=== PATIENT | female | born 1965 | race Caucasian/White ===

== ENCOUNTER → 2016-09-01 | Outpatient (CLI) | payer BC ==
[~2016-09-01] MED LIST: ALL180 PO; ATEN-173 PO; BIOT1CAP8 PO; BLACK COHOSH PO; CALCTAB5 PO; CLR10 PO; MELO15TA4 PO; METO25TA3 PO; MULT-506 PO
--- NOTE | 2016-09-01 14:00 | MAMMOGRAPHY REPORT ---
BILATERAL DIGITAL DIAGNOSTIC MAMMOGRAM TOMOSYNTHESIS WITH CAD AND TARGETED LEFT ULTRASOUND: 7 CLINICAL HISTORY: 51-year-old female presents for annual bilateral mammography and also follow-up of a 5 mm nodular asymmetry along the posterior nipple line on the CC view. TECHNIQUE: Bilateral breast tomosynthesis in addition to standard 2D mammography was performed. Curr ent study was also evaluated with a Computer Aided Detection (CAD) system. COMPARISON: Comparison is made to exams dated: 03/03/2016 ultrasound, 03/03/2016 mammogram, 08/30/2015 ultrasound, 08/30/2015 mammogram, 08/23/2014 mammogram, and 08/24/2015 mammogram - [facility]. BREAST COMPOSITION: There are scattered areas of fibroglandular density in both breasts. FINDINGS: The parenchymal pattern of the right breast is similar compared to prior exams. No new espinoza spicious mass, architectural distortion or suspicious microcalcifications are seen in the right rashmi [address]. There are stable punctate benign-appearing microcalcifications in the lateral right breast. A 5 mm partially circumscribed mass is again seen in the middle one third of the left breast, along the posterior nipple line on the CC view. There is a second possible lobulated 7 mm mass in the upp er outer middle one third of the left breast, 9 cm distal to the nipple. A faint 4 mm asymmetry in the medial posterior left breast on the CC view is increasingly conspicuous compared to prior exams. Further evaluation with ultrasound was performed throughout the left breast. Real-time high-resolution ultrasound was performed throughout the left breast including the retroare olar breast. In the 11:30 periareolar left breast, previously labeled as 12:00 axis, there is a rou nded hypoechoic solid versus cystic mass measuring 3.2 x 2.7 x 2.8 mm. When comparing to the prior ultrasound this measured 3.3 x 3.1 x 3.5 mm on the March 03 exam, and 3.7 x 3.2 x 3.0 mm on the August 29 exam. This most likely represents a benign mass such as a, gated cyst or fibroadenoma give n the stability. Additional sonographic evaluation was performed in the medial and lateral left martín ast. However, the 7 mm lobulated mass is not definitely identified, nor is any abnormality in the m edial breast to correlate with the 4 mm asymmetry. IMPRESSION: ACR BI-RADS CATEGORY 0: INCOMPLETE EVALUATION: NEED ADDITIONAL IMAGING EVALUATION, TAR GETED ULTRASOUND ACR BI-RADS CATEGORY 0: INCOMPLETE EVALUATION: NEED ADDITIONAL IMAGING EVALUATION 1. There is a stable benign-appearing solid versus cystic mass in the 11:30 to 12:00 periareolar le ft breast, thought to correlate with a 5 mm mammographic mass, which has also been stable mammograph ically for 1 year. 2. However, there is a lobulated 7 mm mass in the upper outer middle one third of the left breast, and a vague 4 mm asymmetry in the medial left breast without sonographic correlate. Given the famil y history of breast cancer, the patient's mother, further evaluation with a bilateral breast MRI is recommended to exclude the possibility of a suspicious enhancing mass in those locations. 3. Stable mammographic appearance of the right breast, without mammographic evidence of malignancy. Recommend follow-up mammography in 1 year. These results and recommendations were discussed with the patient at the time of the exam. She tent atively scheduled the breast MRI prior to leaving our department. Approximately 10% of breast cancers are not detected with mammography. A negative mammographic repor t should not delay biopsy if a clinically suggestive mass is present. Nayana Roberts M.D. ay/:09/01/2016 10:22:24 Bullet Slug Casting Machine Operator: Dayana CHAWLA)([place]), [facility] letter sent: Addl Imaging 0 BI-RADS Code: ACR BI-RADS Category 0: Incomplete Evaluation: Need Additional Imaging Evaluation Ul trasound BI-RADS: ACR BI-RADS Category 0: Incomplete Evaluation: Need Additional Imaging Evaluation
== END | disposition home or self-care (01) ==
LOC: C.MAMM 08:15
PROVIDERS: ATTEND Obstetrics & Gynecology
DX: N63 Unspecified lump in breast (principal); N64.9 Disorder of breast, unspecified

== ENCOUNTER → 2016-09-23 | Outpatient (CLI) | payer BC ==
[~2016-09-23] MED LIST changes: +GADAVIST IV PRN
--- NOTE | 2016-09-25 07:55 | MAMMOGRAPHY REPORT ---
BREAST MRI OF BOTH BREASTS : 09/23/2016 CLINICAL HISTORY: 51-year-old woman with a strong history of breast cancer = mother, presents for as sessment in the left breast. There is a 7 mm lobulated mass in the upper outer quadrant of the left breast and vague 4 mm nodular asymmetry in the medial left breast for which no sonographic correlat es are identified. Breast MRI is obtained to exclude any suspicious enhancing masses in the areas. COMPARISON: Comparison is made to exams dated: 09/01/2016 ultrasound, 09/01/2016 mammogram, 03/03/2016 ultrasound, 08/30/2015 ultrasound, 08/30/2015 mammogram, and 08/24/2015 mammogram - [facility]. TECHNIQUE: Using a 1.5 Kristina magnet and dedicated breast coil, multisequence axial images were obtai belinda through the breasts. After uneventful IV administration of 10.5 mL of Gadavist, dynamic multiph ase contrast-enhanced axial images, and sagittal postcontrast were obtained. Temporal subtraction a xial images and 3-D MIP images are provided. Everything was then reviewed on a 3-D workstation, AEG IS. FINDINGS: Right breast: There is no significant background parenchymal enhancement. No suspicious enhancing m ass, non-mass enhancement, focal area of architectural distortion or suspicious kinetics are seen wi thin the right breast. There is no focal skin thickening or nipple retraction. No suspicious right axillary lymphadenopathy. Left breast: There is no significant background parenchymal enhancement. A 7.9 mm conspicuous nodul ar area of fibroglandular tissue is identified in the 2:00 to 3:00 posterior left breast (sagittal i mage 25/136 and axial image 70/120) there is no associated enhancement or suspicious kinetics. In r etrospect, this nodular asymmetry appears very similar to 08/09/2012 mammogram, therefore likely jaime ign. Given the lack of enhancement this is not considered suspicious and no further close follow-up is needed. However, there is a round, circumscribed enhancing mass in the 10:00 middle to anterior left breast with associated persistent kinetics (axial image 71/120 and saggital images 31/136), me asuring 4.5 x 3.8 mm. This is isointense on the corresponding T2-weighted sequence. No associated architectural distortion. This likely correlates with the 4 mm nodular asymmetry seen mammographica lly. Although this could represent a benign mass is a fibroadenoma, second look ultrasound with pos sible ultrasound-guided core needle biopsy is recommended. No other suspicious enhancing mass, non- mass enhancement, focal area of architectural distortion or suspicious kinetics is seen in the left breast. There is no focal skin thickening or nipple retraction. No suspicious left axillary lympha denopathy. IMPRESSION: ACR BI-RADS CATEGORY 0: INCOMPLETE EVALUATION: NEED ADDITIONAL IMAGING EVALUATION 1. A 4.5 x 3.8 mm round enhancing mass is identified in the 10:00 left breast, thought to correlate with nodular asymmetry seen mammographically. Targeted second look ultrasound with possible ultras ound-guided core needle biopsy is recommended. 2. The 7 mm nodular asymmetry in the lateral left breast is identified on MRI but demonstrates no a ssociated enhancement. This is considered benign and also in retrospect has likely been stable mamm ographically dating back to at least 2012. No further close follow-up is needed at this time. 3. No MRI evidence of malignancy within the right breast. The patient will be called to schedule an appointment. Nayana Roberts M.D. ay/:09/24/2016 22:05:49 Hydrographer: table games floor supervisor, [facility] letter sent: Addl Imaging 0 BI-RADS Code: ACR BI-RADS Category 0: Incomplete Evaluation: Need Additional Imaging Evaluation
== END | disposition home or self-care (01) ==
LOC: C.MRI 06:23
PROVIDERS: ATTEND Obstetrics & Gynecology
DX: R92.8 Other abnormal and inconclusive findings on diagnostic imaging of breast (principal); N63 Unspecified lump in breast; N64.89 Other specified disorders of breast; Z80.3 Family history of malignant neoplasm of breast

== ENCOUNTER → 2016-10-03 | Outpatient (CLI) | payer BC ==
[~2016-10-03] MED LIST changes: -GADAVIST IV PRN
--- NOTE | 2016-10-03 12:36 | MAMMOGRAPHY REPORT ---
ULTRASOUND OF LEFT BREAST: 10/03/2016 CLINICAL HISTORY: Second look ultrasound for a 5 mm round enhancing mass seen within the left 10:00 breast on recent breast MRI. COMPARISON: Comparison is made to exams dated: 09/01/2016 mammogram, 03/03/2016 mammogram, 08/30/2015 mammogram, 08/24/2015 mammogram, and 08/23/2014 mammogram - [facility]. TECHNIQUE: Real-time targeted ultrasound of the left breast was performed. FINDINGS: Real-time, high-resolution targeted ultrasound was performed of the area of the enhancing mass seen on the breast MRI, in the left breast at approximately 10:00. No suspicious masses or other suspici ous sonographic abnormalities are noted in the left 10:00 breast. In the left 11 to 11:30 breast, 2 cm from the nipple, again noted is a round circumscribed hypoechoic mass which measures 4 x 3 mm, w hich is stable dating back to the 08/30/2015 exam where the mass measured 4 x 3 x 3 mm. This does no t clearly correlate with the enhancing mass on MRI due to the far posterior location, whereas the ma ss on MRI was at a middle depth. The enhancing mass on MRI corresponds with a mammographic mass whi ch has been stable now dating back to August 2015. Given one year of stability and given the benign morphology on MRI including round shape and circumscribed margins as well as persistent kinetic monika ernestina, the mass is probably benign and likely represents a fibroadenoma. Recommend another short inte rval follow-up mammogram and possible ultrasound of the left breast in 6 months. IMPRESSION: ACR-BI-RADS CATEGORY 3: PROBABLY BENIGN - FOLLOW-UP RECOMMENDED Hypoechoic 4 mm mass in the left 11:30 breast on ultrasound is stable dating back to the August 2015 exam. This may correlate with the enhancing mass seen on MRI although is in a more posterior locati on than expected for the MRI mass. The enhancing mass on MRI has been stable mammographically datin g back to the August 2015 exam, and has benign features on the MRI. Given one year of stability and given benign features on MRI, the mass is probably benign. Recommend short interval follow-up diagn ostic tomosynthesis mammograms and possible ultrasound of the left breast in 6 months to confirm lidia chacha stability. The patient was verbally notified of the results. Sheila Hernandez M.D. ah/:10/03/2016 08:53:47 Director Workers Compensation: Sheila Hernandez MD, [facility] letter sent: Follow Up Recommended 3 BI-RADS Code: ACR-BI-RADS Category 3: Probably Benign
== END | disposition home or self-care (01) ==
LOC: C.MAMM 08:03
PROVIDERS: ATTEND Obstetrics & Gynecology
DX: N63 Unspecified lump in breast (principal)

== ENCOUNTER → 2017-04-06 | Outpatient (CLI) | payer BC ==
[~2017-04-06] MED LIST changes: -ALL180 PO; -ATEN-173 PO; -CALCTAB5 PO; -MULT-506 PO
--- NOTE | 2017-04-06 13:34 | MAMMOGRAPHY REPORT ---
UNILATERAL LEFT DIGITAL DIAGNOSTIC MAMMOGRAM TOMOSYNTHESIS WITH CAD AND TARGETED LEFT ULTRASOUND: CLINICAL HISTORY: 51-year-old woman presents for follow-up in the left breast for a 4 mm benign-appea ring mass in the 11:30 axis. TECHNIQUE: Left breast CC and MLO 2-D and tomosynthesis images were obtained. Current study was als o evaluated with a Computer Aided Detection (CAD) system. COMPARISON: Comparison is made to exams dated: 10/03/2016 ultrasound, 09/23/2016 breast MRI, 09/01/2016 ultrasound, 09/01/2016 mammogram, 03/03/2016 mammogram, and 08/24/2015 mammogram - [facility]. BREAST COMPOSITION: There are scattered areas of fibroglandular density in the left breast. FINDINGS: A lobulated mass in the superior posterior left breast on the MLO view has decreased in siz e, confirming benignity (tomosynthesis slice 28/84). There is a low density 4 mm partially circumscr ibed mass in the 11:30 to 12:00 left breast, 4.4 cm distal to the nipple on the CC view that appears similar in size dating back to at least 08/24/2015 and is most likely benign. No other new suspiciou s mass, focal area of architectural distortion, asymmetry or suspicious calcifications are seen in th e left breast. There are scattered benign-appearing punctate microcalcifications diffusely throughou t the left breast. Targeted ultrasound was performed in the left breast 11:00 to 12:00 axes. In the 11:30 axis, 2 cm fr om the nipple, a small parallel hypoechoic circumscribed benign appearing mass is again seen measurin g 4.2 x 2.6 x 4.6 mm. This does not appear significantly changed comparing to prior ultrasounds dati ng back to 03/03/2016, and possibly 08/30/2015. No new suspicious solid mass is identified. IMPRESSION: ACR-BI-RADS CATEGORY 3: PROBABLY BENIGN, TARGETED ULTRASOUND ACR-BI-RADS CATEGORY 3: PRO BABLY BENIGN There is a benign appearing circumscribed 4 mm low-density mammographic mass in the middle one third of the left breast, along the posterior nipple line on the CC view (tomosynthesis slice 38), that has been stable mammographically dating back to August 2015, and likely also stable sonographically datin g back to that time. Another six-month follow-up left diagnostic tomosynthesis mammogram and repeat ultrasound is recommended to ensure at least 2 years of stability to confirm benignity. Annual right mammography will also be due at that time. These results and recommendations were discussed with the patient at the time of the exam. Approximately 10% of breast cancers are not detected with mammography. A negative mammographic report should not delay biopsy if a clinically suggestive mass is present. Nayana Roberts M.D. ay/:04/06/2017 10:23:44 Boring Machine Operator Horizontal: Kerry RUELAS(Missy)(M), [facility] letter sent: Follow Up Recommended 3 BI-RADS Code: ACR-BI-RADS Category 3: Probably Benign Ultrasound BI-RADS: ACR-BI-RADS Category 3: Pr obably Benign
== END | disposition home or self-care (01) ==
LOC: C.MAMM 07:52
PROVIDERS: ATTEND Obstetrics & Gynecology
DX: N63.20 Unspecified lump in the left breast, unspecified quadrant (principal)

== ENCOUNTER → 2017-10-14 | Outpatient (CLI) | payer BC ==
[~2017-10-14] MED LIST changes: +MELO-84 PO; -MELO15TA4 PO
--- NOTE | 2017-10-14 15:31 | MAMMOGRAPHY REPORT ---
BILATERAL DIGITAL DIAGNOSTIC MAMMOGRAM TOMOSYNTHESIS WITH CAD AND TARGETED LEFT ULTRASOUND: 10/14/2017 CLINICAL HISTORY: Close follow-up of a benign-appearing low density circumscribed 4 mm mass in the le ft breast along the posterior nipple line on the CC view. Also time of annual bilateral screening ma mmography. TECHNIQUE: Bilateral breast tomosynthesis in addition to standard 2D mammography was performed. Curre nt study was also evaluated with a Computer Aided Detection (CAD) system. COMPARISON: Comparison is made to exams dated: 04/06/2017 mammogram, 04/06/2017 ultrasound, 7 ultrasound, 09/23/2016 breast MRI, 09/01/2016 mammogram, and 03/03/2016 ultrasound - [facility]. BREAST COMPOSITION: There are scattered areas of fibroglandular density in both breasts. FINDINGS: There is a persistent 4 mm circumscribed low-density mass in the middle one third of the le ft breast along the posterior nipple line on the CC view that is stable in size and visual appearance dating back to at least 08/24/2015. An asymmetry in the lateral, middle one third of the left breast o n the CC view is less prominent and most likely represented normal overlapping tissue. There are a f ew scattered benign punctate microcalcifications, stable in each breast. No new suspicious mass, as ymmetry, architectural distortion or cluster of microcalcifications is seen. Targeted ultrasound was performed in the 11:30 left breast, in the area of benign-appearing hypoechoi c circumscribed mass identified on prior ultrasound. In the 11:30 axis, 2 cm from the nipple, there is an oval parallel circumscribed hypoechoic benign-appearing mass measuring 4.7 x 2.6 x 4.6 mm. Thi s is unchanged comparing to the prior ultrasound dated October 03, 2016. IMPRESSION: ACR BI-RADS CATEGORY 2: BENIGN, TARGETED ULTRASOUND ACR BI-RADS CATEGORY 2: BENIGN Stable mammographic appearance of the breasts, including stable size of a benign-appearing circumscri bed 4 mm mass in the middle one third of the left breast along the posterior nipple line on the CC vi ew, that is similar in size and visual appearance dating back to at least 08/24/2015 and with 2 years o f stability is considered benign. A possible sonographic correlate in the 1130 left breast, 2 cm fro m the nipple on targeted ultrasound is also stable. Therefore, would recommend return to annual scre ening mammography schedule, including tomosynthesis mammography in 1 year. These results and recommendations were discussed with the patient at the time of the exam. Approximately 10% of breast cancers are not detected with mammography. A negative mammographic report should not delay biopsy if a clinically suggestive mass is present. Nayana Roberts M.D. ay/:10/14/2017 08:42:04 Deployment Specialist: Meenakshi RUELAS(R)(M), [facility] letter sent: Normal 1/2 BI-RADS Code: ACR BI-RADS Category 2: Benign Ultrasound BI-RADS: ACR BI-RADS Category 2: Benign
== END | disposition home or self-care (01) ==
LOC: C.MAMM 07:55
PROVIDERS: ATTEND Obstetrics & Gynecology
DX: N63.20 Unspecified lump in the left breast, unspecified quadrant (principal)

== ENCOUNTER → 2017-10-28 | Outpatient (CLI) | payer BC | END | disposition home or self-care (01) | LOC: C.PAPS 11:42 | PROVIDERS: ATTEND Obstetrics & Gynecology | DX: Z01.419 Encounter for gynecological examination (general) (routine) without abnormal findings (principal) ==

== ENCOUNTER 2023-12-16 05:00 | Observation (INO) ==
--- NOTE | 2023-11-05 12:19 | PAT Medication Instructions ---
Medication Instructions Date of Service November 05, 2023 Home Medications calcium carbonate-vitamin D3 [Calcium 600 with Vitamin D3] 1 tab PO QAM loratadine 10 mg tablet (Claritin) 10 mg PO DAILY PRN Allergy Symptoms magnesium oxide 400 mg PO QAM vitamin A 2,400 mcg capsule 2,400 mcg PO QAM biotin 10,000 mcg capsule 10,000 mcg PO QAM desonide 0.05 % topical gel 1 applic topical Q2D estradiol 0.01% (0.1 mg/gram) vaginal cream 1 appful vaginal UD metoprolol succinate 25 mg tablet,extended release 24 hr 12.5 mg PO QAM [id number] 5 mg-zeaxanth 1 mg-bilberry 7.5 mg-herbal capsule (Macular Health Formula) 1 cap PO QAM ASK your prescriber and surgeon estradiol 0.01% (0.1 mg/gram) vaginal cream 1 appful vaginal UD STOP taking 2 weeks before surgery vitamin A 2,400 mcg capsule 2,400 mcg PO QAM biotin 10,000 mcg capsule 10,000 mcg PO QAM [id number] 5 mg-zeaxanth 1 mg-bilberry 7.5 mg-herbal capsule (Macular Health Formula) 1 cap PO QAM STOP taking 24 hours before surgery desonide 0.05 % topical gel 1 applic topical Q2D DO NOT take the morning of surgery calcium carbonate-vitamin D3 [Calcium 600 with Vitamin D3] 1 tab PO QAM loratadine 10 mg tablet (Claritin) 10 mg PO DAILY PRN Allergy Symptoms magnesium oxide 400 mg PO QAM Take morning of surgery With a small sip of water, OTHERWISE NOTHING TO EAT OR DRINK AFTER MIDNIGHT: metoprolol succinate 25 mg tablet,extended release 24 hr 12.5 mg PO QAM Take evening before surgery loratadine 10 mg tablet (Claritin) 10 mg PO DAILY PRN Allergy Symptoms (if needed) Other Notes If you have any questions please call us at [phone] or [phone] or [phone] or [phone]
--- NOTE | 2023-11-18 14:34 | Anesthesiology Consultation ---
Date of Service November 18, 2023 Assessment & Plan (1) Encounter for pre-operative examination: Plan - PCP pre-operative evaluation Dr. Gregory Sullivan. PAT testing to be faxed to PCP. - cardiology pre-operative evaluation 11/04/23 [place]: "...history of paroxysmal SVT. She presents for preoperative cardiovascular evaluation prior to left knee replacement with Dr. Powell...currently stable and asymptomatic from a cardiovascular standpoint with no anginal symptoms occurring at >4 METS of activity. She has no evidence of CHF or significant valvular abnormality. BP is well controlled. ECG today shows normal sinus rhythm with no concerning findings. Given this information, patient is at an acceptable risk to proceed with surgery without any additional cardiovascular testing or intervention..." Chart Review Chart Review: Pending: Refer to Additional Notes / Consult section and Patient seen in Pre Admission Testing Teaching & Discussion Pre-Anesthesia Teaching/Discussion Notes: Instructed NPO after midnight before surgery, except medications with 15 cc of water. Medication instructions provided according to the PAT guidelines. History Surgery Operation Date: 12/16/23 09:05 Proposed Procedures p Left Total Knee Arthroplasty - Reggie Powell MD Height/Weight Height: 5 ft 9 in Weight: 106.2 kg Allergies Allergy/AdvReac Type Severity Reaction Status Date / Time pollen extracts Allergy Mild Verified 11/04/23 11:38 aspirin Allergy Unknown UPSET Verified 11/04/23 11:38 STOMACH latex Allergy Unknown RASH Verified 11/04/23 11:38 meperidine Allergy Unknown "KNOCKED Verified 11/04/23 11:38 OUT FOR HALF A DAY" METAL Allergy Unknown RASH WITH Uncoded 11/18/23 14:35 EARRINGS, CAN TOLERATE RINGS Medications Home Medications Medication Instructions Recorded Confirmed Last Taken calcium carbonate-vitamin D3 1 tab PO QAM 12/05/19 11/04/23 Unknown [Calcium 600 with Vitamin D3] loratadine 10 mg tablet (Claritin) 10 mg PO DAILY PRN Allergy Symptoms 12/26/20 11/04/23 Unknown magnesium oxide 400 mg PO QAM 02/25/22 11/04/23 Unknown vitamin A 2,400 mcg capsule 2,400 mcg PO QAM 02/25/22 11/04/23 Unknown biotin 10,000 mcg capsule 10,000 mcg PO QAM 10/30/23 11/04/23 Unknown desonide 0.05 % topical gel 1 applic topical Q2D 10/30/23 11/04/23 Unknown estradiol 0.01% (0.1 mg/gram) 1 appful vaginal UD 10/30/23 11/04/23 Unknown vaginal cream metoprolol succinate 25 mg 12.5 mg PO QAM 10/30/23 11/04/23 Unknown tablet,extended release 24 hr [id number] 5 mg-zeaxanth 1 cap PO QAM 10/30/23 11/04/23 Unknown 1 mg-bilberry 7.5 mg-herbal capsule ([email or web address] Health Formula) Past Medical History Medical History (Updated 11/18/23 @ 15:15 by Jacqueline Segura PA-C) Deviated septum no sx. Elevated blood pressure reading without diagnosis of hypertension Lichen sclerosus Neck pain chronic, denies change or worsening Palpitations chronic, infrequent Paroxysmal supraventricular tachycardia dx ~2008 or 2009, currently on metoprolol; f/u dr. [place], [place], yearly Slow to wake up after anesthesia "think it was from the demerol" Urge and stress incontinence Patient denies h/o stroke, seizures, heart attack, heart failure, DM, blood clots/DVTs or blood transfusions. Exercise / Class Metabolic Activity II 4-5 Yardwork/Stairs/Walk up hill (shortness of breath with one flight of stairs ongoing x several years; denies change or worsening; denies chest discomfort) Past Family History Family History Sister Atrial fibrillation Mother Atrial fibrillation Breast cancer Father Prostate cancer Other Macular degeneration Denies family history of Ovarian cancer Colorectal cancer Past Surgical History Surgical History H/O colonoscopy History of dilatation and curettage 2008 Hx of tonsillectomy [place] teeth extracted Past Anesthesia History Other (see above; uncle combative) History of PONV No Hx of PONV and Hx of Motion Sickness Social History Smoking Status: Never smoker Do You Dip or Chew Tobacco: No Hx Alcohol Use: Yes alcohol intake frequency: holidays/special occasions only Hx Substance Use: No substance use type: does not use Review of Systems Snoring, denies witnessed apneas. Patient denies chest pain, reflux, fever, chills, cough, or wheezing. Physical Exam Vital Signs Vitals BP 122/84 P 60 TEMP 98 SP02 97% on RA RESP 18 Physical Patient resting comfortably in chair in no acute distress, alert and oriented, responding appropriately throughout visit Full cervical extension range of motion without pain TMD 3.5 finger breadths Mallampati Score 2 Dentition: one cap; denies chipped or loose teeth, crowns, implants or bridges Lungs: normal respiratory effort. Good air movement, clear throughout to auscultation, no adventitious breath sounds Cardiac: regular rate and rhythm, no murmurs noted Carotid arteries: negative bruit bilat Lab Results Anesthesia Preop Results Results Anesthesia Widget: WBC 6.96 K/ul (4.8-10.8) 11/18/23 Hgb 14.3 g/dl (12.0-16.0) 11/18/23 Hct 44.1 % (37.0-47.0) 11/18/23 Plt 223 K/uL (130-400) 11/18/23 Na 138 mmol/L (136-145) 11/18/23 K 4.5 mmol/L (3.5-5.1) 11/18/23 Cl 102 mmol/L (98-107) 11/18/23 CO2 31 mmol/L (21-32) 11/18/23 BUN 15 mg/dl (6-23) 11/18/23 Creat 0.85 mg/dl (0.6-1.2) 11/18/23 Glucose Level 99 mg/dl (70-99(Fasting)) 11/18/23 PT 10.0 Seconds (9.0-12.0) 11/18/23 PTT 28 Seconds (21-31) 11/18/23 INR 0.9 (0.9-1.1) 11/18/23 Urine Color Yellow 11/18/23 Urine Appearance Clear (Clear) 11/18/23 Urine pH >= 9.0 (4.5-7.5) H 11/18/23 Urine Specific [place] 1.011 (1.000-1.030) 11/18/23 Urine Protein Negative (Negative) 11/18/23 Urine Glucose (UA) Negative (Negative) 11/18/23 Urine Ketones Negative (Negative) 11/18/23 Urine Blood Negative (Negative) 11/18/23 Urine Nitrite Negative (Negative) 11/18/23 Urine Bilirubin Negative (Negative) 11/18/23 Urine Urobilinogen Negative (Negative) 11/18/23 Urine Leukocyte Esterase 1+ (Negative) H 11/18/23 Urine WBC (Auto) 0-5 /hpf (0-5) 11/18/23 Urine RBC (Auto) 0-2 /hpf (0-2) 11/18/23 Urine Hyaline Casts (Auto) 0-2 /lpf (0-2) 11/18/23 Urine Epithelial Cells (Auto) 0-2 /hpf (0-2) 11/18/23 Urine Bacteria (Auto) None Seen (None Seen) 11/18/23 Blood Type O Positive 11/18/23 Antibody Screen NEGATIVE 11/18/23 Testing Electrocardiogram Date: 11/04/23 NSR, rate 72 bpm Chest X-Ray Date: 11/18/23 No active disease in the chest.
--- NOTE | 2023-12-16 05:26 | History & Physical Bridge Note ---
Date of Service December 16, 2023 History & Physical Bridge Note I have examined the patient, reviewed the History & Physical and in the interval since the performance of the History & Physical I have noted the following changes of clinical significance:consent and site verified. no changes noted
[2023-12-16] MEDS: LR 60ML/HR IV SCH (05:53)
[2023-12-16] MEDS: LR 500ML BOLUS, THEN 15ML/HR IV SCH (06:05)
[2023-12-16] MEDS ORDERED: ROPIVACAINE 0.5% 5 MG/ML 30 ML VIAL ONE (06:16)
[2023-12-16] MEDS ORDERED: MIDAZOLAM HCL 1 MG/ML 2ML VIAL ONE ×2 (06:28→06:33)
[2023-12-16] MEDS ORDERED: fentaNYL citrate PF 100 MCG/2 ML VIAL ONE (06:29)
[2023-12-16] MEDS ORDERED: ONDANSETRON INJ 2 MG/ML 2 ML VIAL IV PRN ×2 (06:33→09:59)
[2023-12-16] MEDS ORDERED: ePHEDrine sulfate 50 MG/ML AMP IV PRN (06:33)
[2023-12-16] MEDS ORDERED: fentaNYL citrate PF 100 MCG/2 ML VIAL IV PRN (06:33)
[2023-12-16] MEDS ORDERED: ATROPINE SULFATE 0.1 MG/ML 10ML SYR IV PRN (06:33)
[2023-12-16] MEDS ORDERED: DROPERIDOL 5 MG/2 ML VIAL IV PRN (06:33)
[2023-12-16] MEDS ORDERED: PROPOFOL IV EMULSION 10 MG/ML 20 ML VIAL IV ONE ×4 (06:35→08:25)
[2023-12-16] MEDS: TRANEXAMIC ACID 1,000 MG **IV Pre-op IV SCH (06:39)
[2023-12-16] MEDS: ceFAZolin 2000MG 2,000 MG/15 ML SYR IV SCH ×2 (07:00→14:51)
[2023-12-16] MEDS: ORTHO JOINT ANESTHETIC ONE (07:28)
[2023-12-16] MEDS: ROPIV 0.5% 246mg, Ketorolac 30mg, EPINEPHrine 0.5mg in NSS INFIL SCH (07:28)
[2023-12-16] MEDS ORDERED: KETOROLAC 30 MG/ML VIAL ONE (07:39)
[2023-12-16] MEDS ORDERED: ONDANSETRON INJ 2 MG/ML 2 ML VIAL ONE (07:39)
[2023-12-16] MEDS ORDERED: ePHEDrine sulfate 50 MG/5 ML SYR ONE (07:43)
[2023-12-16] MEDS ORDERED: GLYCOPYRROLATE 0.2 MG/ML VIAL ONE (07:50)
[2023-12-16] MEDS ORDERED: KETAMINE HCL 10MG/ML SYR ONE (07:54)
[2023-12-16] MEDS: TRANEXAMIC ACID 1,000 MG **IV Intra-op IV SCH (08:18)
--- NOTE | 2023-12-16 08:47 | Post Operative Brief Note ---
Immediate Post Op Note Date of Surgery December 16, 2023 Pre & Post Diagnosis Operation Date: 12/16/23 07:00 Pre-Op Diagnosis: Left Knee Osteoarthritis Post-Op Diagnosis: Left Knee Osteoarthritis I identified the patient and participated in the time-out.: Yes Procedure Operation Date: 12/16/23 07:00 Actual Procedures p Left Total Knee Arthroplasty(Left) - Reggie Powell MD Surgeon Reggie Powell MD Loan Servicing Representative POLI/Pastora Estimated Blood Loss 25 Findings Consistent with Post-Op Diagnosis Grade 4 patellofemoral disease entire compartment grade 4 lesion times there is area medial femoral condyle and half dime sized area lateral femoral condyle marginal osteophytes entire femur advanced laterally. Fluids See anesthesia report Complications None
--- NOTE | 2023-12-16 08:52 | Operative Report ---
Post Operative Report Pre & Post Diagnosis Operation Date: 12/16/23 07:00 Pre-Op Diagnosis: Left Knee Osteoarthritis Post-Op Diagnosis: Left Knee Osteoarthritis I identified the patient and participated in the time-out.: Yes Procedure Operation Date: 12/16/23 07:00 Actual Procedures p Left Total Knee Arthroplasty(Left) - Reggie Powell MD Surgeon Reggie Powell MD Cable Ferryboat Operator POLI/Pastora Estimated Blood Loss 25 Findings Consistent with Post-Op Diagnosis Severe patellofemoral disease entire compartment dime size area medial femoral condyle SIZED area lateral femoral condyle marginal osteophytes severe particularly laterally. Fluids See anesthesia Specimens Bone pathology Drains None Complications None Indications Failed conservative management including multiple injections advanced disease by x-ray in the patellofemoral joint Description of Procedure After the patient was appropriate notified site provide consent verified antibiotics confirmed to be given the left lower extremity was prepped and draped in his routine fashion. Leg was exsanguinated with a rubber Esmarch bandage and the tourniquet inflated to 275 mmHg for total of 68 minutes. Midline exposure was utilized parapatellar throughout any performed synovectomy completed. Osteophytes removed along the margin of the femur. Distal femur then entered cruciates resected tibia subluxated menisci resected. Distal femur then resected approximately 9 to 10 mm. Extramedullary tibial alignment guide then applied and 4 mm cut made off the tibia. Extension gap was excellent. Tibia was sized to a size 4 femur sized to a size 5 appropriate rotation marked. Cutting block applied anterior posterior condylar and chamfer cuts made. Flexion gap checked and was excellent box cuts then made. Size 5 fit well. Tibia is then broached and reamed to a size 4. Trial spacer was then fit and the 11 mm spacer was excellent. This allowed excellent tracking of the patella. Along good midrange stability and good extension flexion stability throughout full range of motion. Patella was then resected and fit for 32 appropriate seating only leaving about 13 to 14 mm of patella. Patella button tracked well. Ortho mix was injected all about the knee all trial limits were removed the knee soaked in Betadine for 2 minutes then irrigated and then the permanent cemented into position tibia femur patella in that order at 12 minutes tourniquet deflated at 14 minutes knee flexed no cement removal was required wound was irrigated. Permanent liner was then seated. The knee was reduced. Everything was stable and tracked well. The wound was then closed with #2 Vicryl 2-0 Vicryl and standstill clips appropriate dressing applied the patient transferred recovery in satisfactory condition he tolerated the procedure well. Summary of implants journey 2 [employer] implant femur size 5 tibia size 4 insert 11 mm thick size 4 patella size 32 2 bags of Palacos G cement. (Femur 56 FT tibia 46 FT insert 3/411 mm 6 FT patella 32 round). I attest to the content of the Intraoperative Record and any orders documented therein. Any exceptions are noted below.
--- NOTE | 2023-12-16 08:53 | Orthopedic Progress Note ---
Date of Service December 16, 2023 Orthopedic Progress Note Patient tolerated left total knee replacement well. Denies chest pain shortness of breath fever chills nausea vomiting headache. Vital signs are stable she is afebrile. Wound dressing clean dry and intact. Neurovascular check limited by spinal x- ray pending. Family contacted.
--- NOTE | 2023-12-16 08:54 | Discharge Summary ---
Date of Service December 17, 2023 Admission HPI Per Admitting Provider Left knee pain admitted for left total knee replacement. Failed conservative management for an extended period of time. Principal Diagnosis Osteoarthritis left knee advanced patellofemoral joint Discharge Data Allergies Allergy/AdvReac Type Severity Reaction Status Date / Time pollen extracts Allergy Mild Verified 12/16/23 05:51 aspirin Allergy Unknown UPSET Verified 12/16/23 05:51 STOMACH latex Allergy Unknown RASH Verified 12/16/23 05:51 meperidine Allergy Unknown "KNOCKED Verified 12/16/23 05:51 OUT FOR HALF A DAY" METAL Allergy Unknown RASH WITH Uncoded 12/16/23 05:51 EARRINGS, CAN TOLERATE RINGS Vaccinations None Consultations None Procedures Performed Operation Date: 12/16/23 07:00 Actual Procedures p Left Total Knee Arthroplasty(Left) cemented- Reggie Powell MD Ordered Studies 12/16/23 05:00 US - OR guided needle placemen Routine Hospital Course (1) Status post left knee replacement: Plan home with services Total Time Total Time Spent Total Time Spent (In Minutes): 5 Discharge Plan Discharge Items Patient Disposition: Home - Home Health Services Reason For Visit: Left Knee Osteoarthritis Discharge Diagnosis: Left knee s/p total knee replacement Condition on Discharge: Good Activity: Per Instructions section Lifting: Wait until after follow-up appointment Bathing: Keep incision dry Sexual Activity: Wait until after follow-up appointment Exercise/Sports: Wait until after follow-up appointment Driving/Machine Use: No driving until off of narcotics Weightbearing: Full weightbearing Non-emergency contact: Surgeon Call non-emergency contact if: you have any medication questions, your pain is not controlled, your temperature is above 101.5, your wound has increased redness, your wound has increased drainage and your wound pain has increased Follow-up/Referrals: Gregory Sullivan MD [Primary Care Provider] - Diet: Regular Addtl Attending Provider Instructions: New Medicine: * You will likely be taking one or more of these medications: 1. Percocet - Take, as directed, when you need it, every four to six hours to control your pain. 2. Iron Sulfate - Take 1x each day for the month after surgery to help you replace the blood lost during surgery. 3. Eliquis - Thins your blood to lessen the chance of forming a blood clot. * The most common side effects of pain medicine and iron are nausea and constipation. If nausea or constipation is too much of a problem or if you have any questions about your new medicines or doses, call [facility] at . We will try to help you manage these issues. "VERY IMPORTANT TO READ AND REVIEW" Blood Clots and Blood Thinning Medicine: * You are given Eliquis during the immediate post-operative period to lessen the risk of blood clots forming in your legs and/or lungs. It is usually given for 4 weeks after surgery. Pain: * The immediate post-operative period after knee replacement surgery is often quite painful. * You are given a prescription for pain medicine. You should take it, as directed, when you need it, especially before physical therapy and before going to bed. Pain that interferes with sleep is very common and can last several months. * You will likely need pain medicine for the first four to six weeks. It will not stop all of the pain. The pain will lessen and as you feel better, you may change to milder pain medicine such as Tylenol. * The most common side effects of pain medicine are nausea and constipation, so don't take more than you need. Physical Therapy: * You will have physical therapy two or three times each week for four to six weeks after your surgery in order to regain your knee range of motion and to retrain your knee to work properly. * It is just as important to make sure you are getting your knee perfectly straight as it is to regain your knee bend. * Taking a pain pill an hour before therapy can help you have a more productive and comfortable therapy session if needed. Home Exercise: * You were shown a series of exercises (heel props, heel slides, etc.) in the hospital. Do these exercises three to four times each day including the exercises you were shown in physical therapy. Walking: * Get up and walk several times each day. For the first four weeks, try not to stand or walk for more than one hour at a time. If you do stand or walk for more than one hour, you will not hurt anything, but your knee and leg will likely swell. * As you feel comfortable, you may change from the walker or crutches to a cane and then to independent walking. SELF CARE INSTRUCTIONS AFTER TOTAL KNEE REPLACEMENT A. You may need to continue a physical therapy program after discharge from the hospital. There are several options available to you. Your doctor will assist you in selecting the best one for you. 1. An out-patient facility 2 to 3 times a week for therapy or home therapy. 2. Continue working on all exercises taught to you in the hospital. Your goals should be to increase bending of your knee to 90 degrees and beyond and to fully straighten your knee. B. You may progress at your own pace from walking with a walker or crutches to a cane; then to no assistive devices. C. Make walking a part of your daily routine. Be up as much as comfortable with rest periods throughout the day. Rest with leg elevation is very important. Use the ice wrap frequently for the first 3-4 weeks. D. There are no restrictions on activities. You may ride in a car, shop, participate in lens cleaner and all social activities. E. Wear the long elastic stockings (DENISE hose) 20 hours a day for six weeks after surgery. They can be removed several times a day for laundering and for a shower. F. Do not place a pillow behind your knee when resting. A pillow at your ankle is okay. VERY IMPORTANT TO READ AND REVIEW A. Take Eliquis (blood thinning medication) as directed by your doctor. B. There are a few signs you need to watch for after you are home. Call [facility] if you notice any of the followin. Increased severe knee pain. Some pain is expected especially when you exercise. 2. Increased swelling in your leg or knee; pain or swelling of the calf muscle in either lower leg. 3. Any fluid drainage from the incision. 4. Shortness of breath or chest pain. C. Please call [facility] at if you have any concerns or questions about your operation or recovery. The doctor or his nurse will return your call promptly. D. You must take antibiotics before dental work, bladder, bowel or other surgery. Call the office to obtain a prescription at least 2 days prior to your appointment. * CALL IF INCREASED PAIN, REDNESS, DRAINAGE OR FEVER GREATER THAT 101. * Sutures should be removed 12-14 days after surgery unless you are on chronic steroids, then it will be 14-18 days after surgery. Call your doctor if: * Temperature above 101 degrees F. * Pain not relieved by pain medicine ordered. * Increased drainage or redness from incision. * Notify your doctor with any questions or concerns. DIET: * Resume previous diet. MEDICATIONS: * Please take your prescriptions as instructed at your pre-op appointment and/or see medication discharge instructions listed above. * If concerns develop, call your physician's office at . SPECIAL CARE INSTRUCTIONS: * Ice/Elevate as instructed. * Keep dressing clean, dry, intact. * Your surgical extremity may be discolored due to prepping agents used on the skin. A bluish-green tint is a normal variant and should not cause alarm. Call your doctor at [phone] if: * Temperature above 101 degrees * Pain not relieved by pain medicine ordered * There is increased drainage or redness from any incision * You have any unanswered questions, problems or concerns. FOLLOW UP VISIT: * If not already scheduled, please call the office at to schedule a follow-up appointment. Pending Studies at Discharge: Yes (Bone pathology) Studies:: bone pathology Stand-Alone Forms: [facility], Smoking Cessation Medications and DC Order Prescriptions: No Action loratadine [Claritin] 10 mg tablet 10 mg PO DAILY PRN (Reason: Allergy Symptoms) magnesium oxide 400 mg magnesium capsule 400 mg PO QAM vitamin A 2,400 mcg capsule 2,400 mcg PO QAM calcium carbonate-vitamin D3 1 tab PO QAM biotin 10,000 mcg Capsule 10,000 mcg PO QAM estradiol 0.01 % (0.1 mg/gram) Cream 1 appful VAGINAL UD Rx Instructions: externally every other day opposite days of desonide, internally used 2x per week desonide 0.05 % Gel 1 applic TOPICAL Q2D Macular Health Formula 5-1-7.5 mg Capsule 1 cap PO QAM metoprolol succinate 25 mg tablet extended release 24 hr 12.5 mg PO QAM clobetasol 0.05 % Cream 1 applic TOPICAL BID PRN (Reason: Rash) Admission Data Admit Date/Time: 12/16/23 09:11 Attending Provider: Reggie Powell Admit Provider: Reggie Powell Primary Care Provider: Gregory Sullivan Other Providers: [facility]; [facility]
--- OUTSIDE RECORDS SUMMARY | 2023-12-16 08:57 | External Medical Summary | Continuity of Care Document ---
Author Name Unknown Organization [id number] Address [address] [place] [phone] Care Team Providers Care Math [employer] Science Division Chair Name Role Phone Gregory Sullivan Primary Care Physician [phone] [id number] Date[facility] 11/18/23 - 11/18/23 [facility] [place] [id number] [address] [address] Encounter Diagnosis Bilateral primary osteoarthritis of knee(Discharge Diagnosis) - 11/18/23 Discharge Disposition: Home or Self Care Attending Physician: HARJIT Cronin, Oralia Louis Referring Physician: MD Andre, Reggie Ulloa Allergies, Adverse Reactions, Alerts Substance Criticality Severity Reaction Reaction Severity Status aspirin nausea Active Latex Contact dermatitis. Active Immunizations Given and Recorded Vaccine Date Status Refusal Reason SARS-CoV-2 (COVID-19) mRNA-1273 vaccine 04/07/23 R ecorded zoster vaccine, inactivated 03/04/23 Given zoster vaccine, inactivated 01/01/23 Given hepatitis B adult vaccine 02/02/23 Given hepatitis B adult vaccine 01/01/23 Given influenza virus vaccine, inactivated 05/27/21 Jefe rded influenza virus vaccine, inactivated 03/15/14 Jefe rded influenza virus vaccine, inactivated 04/08/13 Jefe rded influenza virus vaccine, inactivated 04/21/12 Jefe rded tetanus/diphtheria/pertuss, acel (Tdap) 03/05/20 R ecorded tetanus/diphtheria/pertuss, acel (Tdap) 11/27/14 G iven Medications biotin 5000 mcg oral tablet, disintegrating Start: 08/26/19 8:01:00 AM EST, 1 tab, PO, Daily Start Date: 08/26/19 Status: Ordered calcium-vitamin D 500 mg-200 intl units oral tablet Start: 05/16/19 8:28:00 AM EST Start Date: 05/16/19 Status: Ordered clobetasol 0.05% topical gel Start: 11/19/23 9:48:00 AM EDT Start Date: 11/19/23 Status: Ordered desonide 0.05% topical ointment Start: 04/30/23 8:23:00 AM EST, 60 g, APPLY TOPICALLY 2 TIMES A DAY APPLY TO AFFECTED AREA DAILY FOR1 MONTH AND THEN EVERY OTHER DAY Start Date: 04/30/23 Status: Ordered estradiol 0.1 mg/g vaginal cream Start: 04/30/23 8:22:00 AM EST, 42 g, PLEASE SEE ATTACHED FOR DETAILED DIRECTIONS Start Date: 04/30/23 Status: Ordered lutein 20 mg oral capsule Start: 03/03/18 12:56:00 PM EDT, 1 cap, PO, Daily Start Date: 03/03/18 Status: Ordered Magnesium Start: 04/29/22 8:28:00 AM EST, Magnesium, 400 = mg Start Date: 04/29/22 Status: Ordered metoprolol Start: 06/25/10 8:15:48 AM EST, 12.5 mg =, PO, Daily, Refills: 0, current medication from another provider Start Date: 06/25/10 Status: Ordered vitamin A Start: 04/29/22 8:30:00 AM EST, 2,400 mcg = Start Date: 04/29/22 Status: Ordered Mental Status 11/18/23 Barriers to Learning one year None evide nt Mandatory Health Literacy Documentation Yes Health Literacy Communication Barriers N ever Primary Language Italian Problem List Condition Confirmation Course Effective Dates Status H ealth Status Informant Stasis pigmentation Confirmed Active Allergic rhinitis Confirmed Active Arthritis Confirmed Active Simons angioma 1 Confirmed Active [place] Confirmed Active Eczema Confirmed Active Family history of skin cancer 2 Confirmed Active Cystocele, unspecified Confirmed Active Hyperlipidemia Confirmed Active Impingement syndrome of right shoulder Confirmed Active Inflamed seborrheic keratosis Confirmed Active Lentigo Confirmed Active Lichen sclerosus Confirmed Active Melanocytic nevus Confirmed Active Osteoarthritis of left knee Confirmed Active Palpitation 3 Confirmed Active Bilateral primary osteoarthritis of knee Confirmed Active ROSACEA Confirmed Active Seborrheic keratosis Confirmed Active Seborrheic keratoses Confirmed Active Weight disorder Confirmed Active 1benign 2unknown type in father 3sees Dr. Can Diagnosis Diagnosis Type Effective Dates Health Status Clinical Service Informant Bilateral primary osteoarthritis of knee Discharge Diagnosis 11/18/23 Procedures Procedure Date Related Diagnosis Body Site Status Mammogram - screening 1 12/26/22 C ompleted Mammogram - screening 2 12/10/20 C ompleted Mammogram - screening 3 12/05/19 C ompleted Diagnostic mammogram 4 12/01/18 Co mpleted Mammogram 5 11/24/18 Completed Cervical cytology finding 6 11/02/18 Completed PAP test date 7 10/29/17 Completed Mammogram Bilateral & target ed Left US 8 10/14/17 Completed Diagnostic mammogram 9 04/06/17 Co mpleted Colonoscopy 10 10/21/16 Completed Pathology 11 10/21/16 Completed ULTRASOUND BREAST COMPLETE 12 10/03/16 Completed MRI of breast 13 09/23/16 Complete d Procedure on knee joint 14 07/28/16 Completed PAP test date 15 03/05/16 Complete d Mammogram - diagnostic 16 03/03/16 Completed diagnostic mammogram Left & us 17 08/30/15 Completed Mammogram 18 08/24/15 Completed Endometrial biopsy 19 02/14/15 Com pleted Pap smear for cervical cance r screening 20 01/19/15 Completed PAP test date 01/19/15 Completed Mammogram - screening 21 08/23/14 Completed X-ray 22 05/24/14 Completed X-ray 23 05/24/14 Completed PAP test date 01/02/14 Completed PAP test date 01/02/14 Completed D&C Completed Tonsillectomy, primary or se condary; age 12 or over Completed [place] Completed 1IMPRESSION: ACR BI-RADS CATEGORY 2: BENIGN There is no mammographic edvidence of malignancy. A 1 year screening mammogram is recommended. (12/27/2023) The patient will receive written notification of the results. 2There is no mammographic evidence of malignancy. A 1 year screening mammogram is recommended. The patient is willing to receive notifications of the results 3There is no mammographic evidence of malignancy. A 1 year screening mammogram is recommended. The patient will receive written notification of the results. 4Effacement of the 8 mm nodular asymmetry in the lateral right breast, and no suspcious sonographic correlate identified. This most likely represented normal overlapping fibroglandular tissue and is considered benign. Recommend return to annual screening mammography schedule, due November 2019 5IMPRESSION: ACR BI-RADS CATEGORY 0: INCOMPLETE EVALUATION: NEED ADDITIONAL IMAGING EVALUATION The mass in the right breast needs additional evaluation. The patient will be called to schedule an appointment. 6Negative for intraepithelial lesion or malignancy 7Negative for intraepithelial lesion or malignancy 8Impression: Stable mammographic appearance of the breasts, including stable size of a benign appearing circumscribed 4 mm mass in the middle one third of the left breast along the posterior nipple line on the CC view, that is similar in size and visual appearance dating back to at least 08/24/2015 and with 2 years of stability is considered benign. A possible sonographic correlate in the 1130 left breast, 2 cm from the nipple on targeted ultrasound is also stable. Therefore, would recommend return to annual screening mammography schedule, including tomosynthesis mammography in 1 year. 9There is a benign appearing circumscribed 4 mm low-density mammographic mass in the middle one third of the left breast, along the posterior nipple line on the CC view that has been stable mammographically dating back to 08/2015, and likely also stable sonographically dating back to that time. Another 6-month f/u left diagnostic tomosynthesis mammogram and repeat US is recommended to ensure at least 2 years ot stability to confirm benignity. Annual right mammography will also be due at that time. 10Rectum, polyps , polypectomy: Single fragment of hyperplastic polyp present 11Rectum,Polyps, Polypectomy: Single fragment of hyperplastic polyp present. 12Hypoechoic 4 mm mass in the left 11:30 breast on US is stable dating back to the August 2015 exam. This may correlate with the enhancing mass seen on MRI although is in a more posterior location than expected for the MRI mass. The enhancing mass on MRI has been stable mammographically dating back tothe August 2015 exam, and has benign features on MRI. the mass is probably benign. Recommend short interval follow-up diagnostic tomosynthesis mammograms and possible US of the left breast in 6 monthsto confirm longer stability. 131. A 4.5x3.8mm round enhancing mass is identified in the 10:00 left breast, thought to correlate with nodular asymmetry seen mammogrphically. Targeted second look US with possible US-guided core bx is recommended. 2. The 7 mm nodular asymmetry in the lateral left breast is identified on MRI but demonstrates no associated enhancement. This is considered benign and also in retrospect has likely been stable mammographically dating back to at least 2012. No further close follow-up is needed at this time. 3. No MRI evidence of malignancy within the right breast. The patient will be called tos chedule an appointment [facility]. 14Cortisone shot to left knee by Dr. Leone. 15Negative for intraepithelial lesion or malignancy Reactive cellular changes associated with: Inflammation (includes typical repair) 161. Another short interval follow-up (6 months) left mammogram including tomosynthesis images and possible repeat US is recommended to ensure stability of a probably benign circumscribed subcentimetermass in the 12:00 left breast. 2. Annual right mammography will be due at that time. 17Impression: Circumscribed 4 mm nearly anechoic mass in the left 12:00 reast, which likely represents a simple cyst and likely corresponds with the mammographic mass. recommend follow-up diagnostic mammograms and possible US of the Left breast in six months to confirm stability. 18Cat 0- incomplete evaluation. Needs additional images. 19fragments of prolifrative type endometrium negative for hyperplasia and malignancy 20Diagnosis: Negative for intraepithelial lesion or malignancy 21Impression: There is no mammographic evidence of malignancy. A 1 yr screening mammogram is recommended. 22right ankle WNL 23left knee show early degenerative arthritiis laterally Vital Signs Most recent to oldest [Reference Range]: 1 Height 174.5 cm (11/18/23 12:53 PM) Patient Weight 105.0 kg (11/18/23 12:53 PM) Body Mass Index 34.48 kg/m2 (11/18/23 12:53 PM) Temperature [36.5-37.9 DegC] 36.4 DegC *LOW* (11/18/23 12:53 PM) Respiratory Rate 20 br/min (11/18/23 12:53 PM) Blood Pressure 124/80mmHg (11/18/23 12:53 PM) Cuff Pulse Pressure 44 mmHg (11/18/23 12:53 PM) Social History Social History Type Response Smoking Status Never smoked cigaret greg Sex Female Pre-OP H & P * HARJIT Cronin, Oralia R: PERFORM, MODIFY Event Display: Pre-OP H & P Authored Date: Name:ROSLYN GOULD Patient Number:[id number] :1965 Date of Service:11/18/2023 Chief Complaint pre op l tka History of Present Illness Shahbaz Fisher presents today forpreoperative history and physical. She is scheduled to have a left total knee arthroplasty with Dr. Powell on December 16, 2023.She has been having many years, 10+knee pain and bilateral knees. Shehas done [id number]- inflammatories, ice, heat, bracing,use of an assistive device such as a walker and cane over the years to alleviate her knee pain. She has tried cortisone injections as well as viscosupplementationwith no long-lasting relief. Over the last few months she has lost 25 pounds and attempts to relieve her pain which has not made a significant difference.She notes that most of her p ainis on the left sideof her left knee. She has severe pain on a daily basis. It interruptsher activities of daily living. Her pain is worse with weightbearingand range of motion. She does not note any significant swelling but states she does occasionally get that. She has pain at rest, pain at night. Pain when standing or sitting for longer than a few minutes. Due to her failure of conservative treatment and worsening symptoms and interruption to activities of daily livingand quality of life she would like to proceed with an elective left total knee arthroplasty. Review of Systems Denies any recent cough, cold, fevers, chills or flulike symptoms. She denies any lightheadedness, dizziness, syncopal episodes, headaches, migraines or seizures. Denies any bleeding or clotting disorders or history of DVT or pulmonary embolism. Denies any recent hospitalizations. Denies any history of metal sensitivity, latex allergy or MRSA. Denies any shortness of breath or chest pain. Denies abdominal pain, heartburn, indigestion, nausea, vomiting, diarrhea or constipation. Denies any urinary tract infections. Denies any hearing or vision changes. Denies any dental problems. Physical Exam Vitals & Measurements T:36.4C RR:20 BP:124/80 SpO2:98% HT:174.5cm WT:105.000kg(Dosing) WT:105.0kg BMI:34.48 BMI:34.48 kg/m2 Vitals:Last Updated 11/19/23 09:48 Date Temp BP Location Pulse RR SpO2 Pain 11/19/23 122/78 60 18 98 4 11/18/23 36.4 124/80 20 98 11/18/23 3 Height and Weight:Last Updated 11/19/23 09:48 Date BMI Wt(kg) Wt(lb) Method Ht(cm) (ft-in) Method 11/19/23 34.38 104.7 230 Standing Scale 11/18/23 34.48 105 231 Standing Scale 174.5 5-8 08/10/23 32.61 101 222 Standing Scale 176 5-9 General:Well-dressed, well-nourished. Normal mood and affect. Alert and oriented x3. HEENT:Head: Atraumatic, normocephalic. Eyes: Extraocular movements intact, pupils equal round and reactive to light, sclera normal. Ears: Ears grossly normal, TMs are clear normal light reflex.Nose: Nares are patent bilaterally. Throat: Oropharynx clear mucous membranes moist good dentition uvula midline. Neck:Supple, no lymphadenopathy, nontender palpation, full range of motion. Cardiac:Regular rate and rhythm, normal S1, S2. No murmurs, rubs or gallops appreciated. Lungs:Clear to auscultation bilaterally. No adventitious sounds. No accessory muscle use. Abdomen:Soft, nontender, nondistended, normal bowel sounds heard in all 4 quadrants. Extremities: Focus on the patients Bilateral knee pain Femoral and sciatic nerve function intact. ROM: 0 to 110 , bilaterally Ligaments intact and stable Diagnostic Results I obtained and personally interpreted 3 views of thebilateral knees which shows patella femoral osteoarthritis in both knees. Assessment/Plan 1.Bilateral primary osteoarthritis of knee Patient is scheduled for a left total knee arthroplasty with Dr. Powell on December 16, 2023. Risks and complications of the procedure were explained to the patient and include but are not limited to infection, pain, bleeding, scarring, nerve and blood vessel damage, wound problems, weakness, stiffness, incomplete relief of symptoms, hardware failure, hardware loosening, wear, fracture, tendon or ligament injury, blood clots, embolisms, heart attack, stroke and . All questions were answered and informed consent was obtained. Postoperative course was discussed. She does have a walker and a cane to use after surgery. She would like home health at the time of discharge. We will prescribe her pain medications at the time of discharge. She most likely will be on Eliquis 2.5 mg p.o. twice daily for 30 days after surgery for DVT prophylaxis. She would like to attend outpatient physical therapy here in our office and those appointments will need to be scheduled. She has preadmission testing later today which she will obtain a preoperative CBC, PRP,PT, PTT, type and screen, urinalysis and urine culture if indicated,chest x-ray. She also needs preoperative car needs preoperative cardiac clearance and clearance from her family physician. Postoperative cours e was discussed. She understands and agrees with the plan. She was instructed on the usage of the CHG wipes. She was informed of thepreoperative joint class that is offered by [facility]. Her postoperative appointments have been scheduled. She knows to call with any further problems, questions or concerns. This chart was completed utilizing [employer] voice recognition software. Grammatical errors, random word insertions, pronoun errors, and in complete sentences are an occasional consequence of the system. Any questions or concerns about the content, text, or information contained within the body of this dictation should be addressed directly to the provider for clarification. Problem List/Past Medical History Ongoing Allergic rhinitis Arthritis Bilateral primary osteoarthritis of knee Simons angioma [place] Cystocele, unspecified Eczema Family history of skin cancer Hyperlipidemia Impingement syndrome of right shoulder Lentigo Lichen sclerosus Melanocytic nevus Osteoarthritis of left knee Palpitation ROSACEA Seborrheic keratoses Stasis pigmentation Weight disorder Resolved Vitiligo Spine pain Procedure/Surgical History Mammogram - screening| Service Date: 12/26/2022Mammogram - screening| Service Date: 12/10/2020Mammogram - screening| Service Date: 12/05/2019Diagnostic mammogram| Service Date: 12/01/2018Mammogram| Service Date: 11/24/2018Cervical cytology finding| Service Date: 11/02/2018PAP te st date| Service Date: 10/29/2017 Mammogram Bilateral & targeted Left US| Service Date: 10/14/2017Diagnostic mammogram| Service Date: 04/06/2017Colonoscopy| Service Date: 10/21/2016Pathology| Service Date: 10/21/2016ULTRASOUND BREAST COMPLETE| Service Date: 10/03/2016MRI of breast| Service Date: 09/23/2016Procedure on knee joint| Service Date: 07/28/2016PAP test date| Service Date: 03/05/2016Mammogram - diagnostic| Service Date: 03/03/2016diagnostic mammogram Left & us| Service Date: 08/30/2015 Mammogram| Service Date: 08/24/2015 Endometrial biopsy| Service Date: 02/14/2015Pap smear for cervical cancer screening| Service Date: 01/19/2015PAP test date| Service Date: 01/19/2015Mammogram - screening| Service Date: 08/23/2014X-ray| Service D ate: 05/24/2014X-ray| Service Date: 05/24/2014PAP test date| Service Date: 01/02/2014PAP test date| Service Date: 01/02/2014 D&C [place] Tonsillectomy, primary or secondary; age 12 or over Medications Home biotin(biotin 5000 mcg oral tablet, disintegrating), 1 tab, PO, Daily calcium-vitamin D(calcium-vitamin D 500 mg-200 intl units oral tablet) desonide topical(desonide 0.05% topical ointment) estradiol topical(estradiol 0.1 mg/g vaginal cream) loratadine(loratadine 10 mg oral tablet), 10 mg= 1 tab, PO, Daily, PRN lutein(lutein 20 mg oral capsule), 20 mg= 1 cap, PO, Daily metoprolol, 12.5 mg, PO, Daily unknown medication(Magnesium), 400 mg vitamin A, 2400 mcg Allergies LatexContact dermatitis. aspirinnausea Social History Smoking Status Never smoked cigarettes Alcohol - Low Risk Employment/School - Comments[place] works in [employer] [place] [employer] Exercise - Regular exercise Exercise type:Walking - Comments: biking, gardening Tobacco - Denies Tobacco Use Family History Arthritis: Mother. Atrial fibrillation: Mother and Sister. Breast cancer: Mother. Colitis: Son. Heart disease: PGF and PGM. Hyperlipidemia: Father. Hypertension: Father. Kidney stones: Mother. Prostate carcinoma: Father. Electronic Signature on File Electronically Reviewed/Signed by: Oralia Cronin PA-C Author Signature Dt/Tm:11/20/2023 09:54AM Division of Sports Medicine Electronically Reviewed/Signed by: Reggie Powell MD Cosigner Signature Dt/Tm: 11/20/2023 11:43 AM Merchandising Lead for Clinical Affairs, [facility] [employer] Professor in Orthopaedics Multifocal Button Inspector, [facility] Sports Medicine [facility] Patient Care team information Care Team Personnel Name: MD Sullivan Juan Position: Physician - Family Med Member Role: Primary Care Provider Address: Address: [address] [place] [address], [place] [address] [place] Care Team Related Persons Name: CANDELARIA ESCAMILLA Address: [facility] Address: home [address] [place], [place] [address]MIGUEL [phone]"
--- OUTSIDE RECORDS SUMMARY | 2023-12-16 08:57 | External Medical Summary | Continuity of Care Document ---
Author Name Unknown Organization [address] [id number] Care Team Providers Care Material Controller Name Role Phone Gregory Sullivan Primary Care Physician [phone] [facility] [id number] Date(s): 11/19/23 - 11/19/[address] [address] [phone] Encounter Diagnosis Body mass index [BMI] 34.0-34.9, adult(Discharge Diagnosis) - 11/19/23 Pre-op evaluation(Discharge Diagnosis) - 11/19/23 Bilateral primary osteoarthritis of knee(Discharge Diagnosis) - 11/19/23 Discharge Disposition: Home or Self Care Attending Physician: MD Sullivan Juan Referring Physician: MD Sullivan Juan Allergies, Adverse Reactions, Alerts Substance Criticality Severity Reaction Reaction Severity Status aspirin nausea Active Latex Contact dermatitis. Active Assessment and Plan Extracted from: Title:Office Visit Note Author:MD Sullivan Juan Dennis e:11/20/23 1.Pre-op evaluation Patient has nohistory or signs /symptoms ofcardiopulmonary disease. recent EKG was normal. Her exercise capacity is appropriate although recently limited by progressive knee pain. Her pre-oprisk for the surgery is low and acceptable. No additional testingis recommended. 2.Bilateral primary osteoarthritis of knee TKR left knee as planned. Immunizations Given and Recorded Vaccine Date Status [...] Start Date: 04/29/22 Status: Ordered Mental Status 11/19/23 Barriers to Learning one year None evide nt Mandatory Health Literacy Documentation Yes Health Literacy Communication Barriers N ever Primary Language Occ[place] Problem List Condition Confirmation Course Effective Dates Status H ealth Status Informant Stasis pigmentation Confirmed Active Allergic rhinitis Confirmed Active Arthritis Confirmed Active Simons angioma 1 Confirmed Active Gomer Confirmed Active Eczema Confirmed Active Family history [...] Bilateral primary osteoarthritis of knee Discharge Diagnosis 11/19/23 Non-Specified Body mass index [BMI] 34.0-34.9, adult Discharge Diagnosis 11/19/23 Non-Specified Pre-op evaluation Discharge Diagnosis 11/19/23 Non-Specified Procedures Procedure Date Related Diagnosis Body Site [...] se condary; age 12 or over Completed [place] [facility] Completed 1IMPRESSION: ACR BI-RADS CATEGORY 2: [...] Most recent to oldest [Reference Range]: 1 Patient Weight 104.7 kg (11/19/23 9:48 AM) Body Mass Index 34.38 kg/m2 (5/30/24 9:48 AM) Heart Rate 60 bpm (11/19/23 9:48 AM) Respiratory Rate 18 br/min (11/19/23 9:48 AM) Blood Pressure 122/78mmHg (11/19/23 9:48 AM) Cuff Pulse Pressure 44 mmHg (11/19/23 9:48 AM) Social History Social History Type Response Smoking Status Never smoked cigaret greg Sex Female FCM Outpt Note * MD Nate, Gregory: PERFORM Event Display: FCM Outpt Note Authored Date: [id number] Chief Complaint pre op clearance for left knee surgery History of Present Illness Chief Complaint pre-op evaluation at the request of :left TKR 12/16/2023 under spinal anesthesia. History of Present Illness pre-op evaluation at the request of :left TKR 12/16/2023under spinal anesthesia. No FhxorpersonalHxofaverse reaction to anesthesia. No bleeding disorder. hx ofpalpitation, takemetoprolol 12.5mg daily for many years - controlled and stable. sees Dr. Can for that, just saw him 11/04/2023, had EKG doneinhis office - was told normal, was told no need foradditional cardiac testing pre-op. Used to walked 3 miles a day daily without cp,sob,.In thepast 6 months, knee pain has progressively worsen and significantly limited her activity level, hard to walk. labs in06/2023 showed normal CMP, CBCand TSH, and mildly elevated lipid. Pre-op labs/test ordered by Dr. Powell show normal PT/INR, PTT and CXR. Planned surgery:left TKR Date of surgery:on 12/16/2023 Location of surgery: [facility] [_] high risk (aortic, peripheral vascular) [x]intermediate risk (intraperitoneal, intrathoracic, CEA, head and neck, orthopedic, prostate) [ ] low risk (endoscopic or superficial procedures, cataract surgery, breast surgery, ambulatory procedures) Planned anesthesia: spinal Exercise tolerance is greater than[4 ]METs: able to go up[ ] flights of stairs without becoming shortness of breath. Bleeding tendency: Denies personal history of VTE. Denies family history of VTE. Denies issues with excessive bleeding after dental work or other surgical intervention. Prior anesthesia: Has not had any difficulties with anesthesia in the past. Revised Cardiac Risk Index: Score: [ 0 ] [_] High Risk Surgery [_] Ischemic Heart Disease [_] History of CHF [_] History of cerebrovascular disease [_] Insulin therapy for DM [_] Pre-op Cr >2 Review of Systems Constitutional: Denies any significant change in weight, appitite andenergy. Denies fever, chills, night sweat. HEENT: Denies recent visual problems, blurring, double vision. Denies dysphagia, sinus pain, sore throat, taste disturbances. Denies decreased hearing, ear pain, ear discharge, nasal discharge. Denies hoarseness or difficulty in swallowing. Respiratory: Denies cough, wheezing, chest pain, short of breath. CV: denies chest pain, shortness of breath,palpitations, claudication or lower extremity edema. GI: denies n/v/d, constipation, heartburn, abdominal tenderness, change in bowel habits, denies melena or blood per rectum. : denies dysuria, hematuria, excessive urination, incontinence, retention, or urgency. Heme/lymph: denies bruising tendencies, bleeding tendencies, swollen lymph glands or swollen extremities. Endocrine: denies excessive thirst, polyuria, cold or heat intolerance, or hypoglycemia MS: denies muscle or joint pain. Integumentary: Denies rash, dryness, or skin lesions Neurologic: denies altered mental status, gait disturbance. Denies depression or anxiety. Physical Exam Vitals & Measurements HR:60(Monitored) RR:18 BP:122/78 SpO2:98% WT:104.700kg(Dosing) WT:104.7kg BMI:34.38 PHQ2 Data(Data Documented on:11/19/2023 09:48) Emotional health assessment NEGATIVE GENERAL: A&Ox3. No acute distress. Affect and speech appropriate. HEENT: PERRLA, EOMI, Conjunctivae clear. Oropharynx clear. TM clear. Nose clear. No sinus tenderness. NECK: Supple, No lymphadenopathy. No thyromegaly. No carotid bruits. HEART: RRR, normal S1, S2. No murmurs, gallops or clicks. LUNGS: breathing not labored, breathing sound clear, breathing sound equal bilaterally, no rales, no wheezing. ABDOMEN: Positive bowel sound, soft, nontender, non-distended. No hepatosplenomegaly noted. No mass. EXTREMITIES: No edema, clubbing or cyanosis. NEURO: MS 5/5, DTR 1-2+ equal bilaterally. SKIN: no abnormal skin lesions noted Assessment/Plan 1.Pre-op evaluation Patient has nohistory or signs /symptoms ofcardiopulmonary disease. recent EKG was normal. Her exercise capacity is appropriate although recently limited by progressive knee pain. Her pre-oprisk for the surgery is low and acceptable. No additional testingis recommended. 2.Bilateral primary osteoarthritis of knee TKR left knee as planned. Problem List/Past Medical History Ongoing Allergic rhinitis Arthritis Bilateral primary osteoarthritis of knee Simons angioma Gomer Cystocele, unspecified Eczema Family history of skin cancer Hyperlipidemia Impingement syndrome of right shoulder Inflamed seborrheic keratosis Lentigo Lichen sclerosus Melanocytic nevus Osteoarthritis of left knee Palpitation ROSACEA Seborrheic keratoses Seborrheic keratosis Stasis pigmentation Weight disorder Resolved Vitiligo Procedure/Surgical History Mammogram - screening| Service Date: [...] 01/02/2014PAP test date| Service Date: 01/02/2014 D&C [place] [facility] Tonsillectomy, primary or secondary; age 12 or over Medications biotin(biotin 5000 mcg oral tablet, disintegrating), 1 tab, PO, Daily calcium-vitamin D(calcium-vitamin D 500 mg-200 intl units oral tablet) clobetasol topical(clobetasol 0.05% topical gel) desonide topical(desonide 0.05% topical ointment) estradiol topical(estradiol 0.1 mg/g vaginal cream) lutein(lutein 20 mg oral capsule), 20 mg= 1 cap, PO, Daily metoprolol, 12.5 mg, PO, Daily unknown medication(Magnesium), 400 mg vitamin A, 2400 mcg Allergies LatexContact dermatitis. aspirinnausea Social History Smoking Status Never smoked cigarettes Alcohol - Low Risk Employment/School - Comments: [facility] [employer] Exercise - Regular exercise Exercise type:Walking - Comments: biking, gardening Tobacco - Denies Tobacco Use Family History Arthritis: Mother. Atrial fibrillation: Mother and Sister. Breast cancer: Mother. Colitis: Son. Heart disease: PGF and PGM. Hyperlipidemia: Father. Hypertension: Father. Kidney stones: Mother. Prostate carcinoma: Father. Health Status Family Member(s) Immunizations Vaccine Date Status SARS-CoV-2 (COVID-19) mRNA-1273 vaccine 04/07/2023 Recorded zoster vaccine, inactivated 03/04/2023 Given hepatitis B adult vaccine 02/02/2023 Given zoster vaccine, inactivated 01/01/2023 Given hepatitis B adult vaccine 01/01/2023 Given influenza virus vaccine, inactivated 05/27/2021 Recorded tetanus/diphtheria/pertuss, acel (Tdap) 03/05/2020 Recorded tetanus/diphtheria/pertuss, acel (Tdap) 11/27/2014 Given influenza virus vaccine, inactivated 03/15/2014 Recorded influenza virus vaccine, inactivated 04/08/2013 Recorded influenza virus vaccine, inactivated 04/21/2012 Recorded Recommendations Health Maintenance Pending(in the next year) OverDue Adult Influenza Vaccine due12/19/22and every 1year Due Adult COVID-19 Vaccination due11/20/23Unknown Frequency Adult Social Determinants of Health Screening due11/20/23Unknown Frequency Satisfied(in the past 1 year) Satisfied Adult COVID-19 Vaccination on04/07/23.Satisfied by ALINE Prado, Karley Body Mass Index on11/19/23.Satisfied by ALINE Reid, Savannah Lipid Screening on07/07/23.Satisfied by Contributor_system, [id number] Shingles Vaccine on01/01/23.Satisfied by EN Persaud, Maty Electronic Signature on File CC: Reggie Powell MD [id number] [address] Electronically Reviewed/Signed by: Gregory Sullivan MD Author Signature Dt/Tm:11/20/2023 05:07 PM Department of Family Medicine JQ Patient Care team information Care Team Personnel Name: MD Sullivan Juan Position: Physician - Family Med Member Role: Primary Care Provider Address: Address: [address] [place] [id number] [place] Care Team Related Persons Name: CANDELARIA ESCAMILLA Address: [facility] Address: home [address], [place] [id number]"
--- NOTE | 2023-12-16 09:04 | Operative Report ---
Post Operative Report Pre & Post Diagnosis Operation Date: 12/16/23 07:00 Pre-Op Diagnosis: Left Knee Osteoarthritis Post-Op Diagnosis: Left Knee Osteoarthritis I identified the patient and participated in the time-out.: Yes Procedure Operation Date: 12/16/23 07:00 Actual Procedures p Left Total Knee Arthroplasty(Left) - Reggie Powell MD Surgeon SHANNAN Powell MD Founder Chairman And Chief Creative Officer POLI/Pastora LOMBARDI Estimated Blood Loss 25 Findings Consistent with Post-Op Diagnosis see operative report Specimens see operative report Drains none Complications none Disposition Accompanied Patient To Recovery: Yes Indications This 58 year old female presented to the office complaints of persisting left knee pain. She had tried conservative care measures without improvement. She elected to proceed with surgical intervention after being educated about potential risks and outcomes. Preoperative imaging was obtained. Description of Procedure The patient was administered a spinal anesthetic and then taken to the operating room where she was given sedation. She was prepped and draped in the usual sterile fashion. Please see Dr. Powell's operative report for specifics of the procedure. I was present for the entire case from initial patient positioning through final wound closure. Assistance was provided in tissue retraction, hemostasis, trial implant placement, final implant placement, and final wound closure. The patient was taken to the recovery room in satisfactory condition. I attest to the content of the Intraoperative Record and any orders documented therein. Any exceptions are noted below.
--- NOTE | 2023-12-16 09:10 | Operative Report ---
Post Operative Report Pre & Post Diagnosis Operation Date: 12/16/23 07:00 Pre-Op Diagnosis: Left Knee Osteoarthritis Post-Op Diagnosis: Left Knee Osteoarthritis I identified the patient and participated in the time-out.: Yes Procedure Operation Date: 12/16/23 07:00 Actual Procedures p Left Total Knee Arthroplasty(Left) - Reggie Powell MD Surgeon Reggie Powell MD Human Resource Officer POLI/Pastora RIVERA-Patric Estimated Blood Loss 25 Findings Consistent with Post-Op Diagnosis Same as postoperative diagnosis. Specimens The resected portions of the distal femur and the proximal tibia. Description of Procedure Please see detailed operative note. I attest to the content of the Intraoperative Record and any orders documented therein. Any exceptions are noted below.
--- NOTE | 2023-12-16 09:29 | XRay Report ---
XR knee LT 1 or 2V routine CLINICAL HISTORY: S/P L TKA COMPARISON: Left knee radiographs August 10, 2023. FINDINGS: Alignment of the total left knee arthroplasty is anatomic. There is no periprosthetic frac ture or unexpected radiopaque foreign body. There are skin alek. IMPRESSION: Expected findings following total left knee arthroplasty. ACT 112: Negative or not required by law. Electronically signed by: Dain Rios M.D. 12/16/2023 9:28 AM
[2023-12-16] MEDS ORDERED: diphenhydrAMINE 50 MG/ML VIAL IV PRN (09:59)
[2023-12-16] MEDS ORDERED: NALOXONE HCL 0.4 MG/1 ML VIAL/CARP IV PRN (09:59)
[2023-12-16] MEDS ORDERED: ALUMINUM/MAGNESIUM SUSP 30 ML UDC PO PRN (09:59)
[2023-12-16] MEDS ORDERED: METOCLOPRAMIDE HCL INJ 5 MG/ML 2 ML VIAL IV PRN (09:59)
[2023-12-16] MEDS ORDERED: HYDROmorphone INJ 0.5 MG/0.5 ML SYR IV PRN (09:59)
[2023-12-16] MEDS ORDERED: bisacodyL 10 MG SUPP PR PRN (09:59)
[2023-12-16] MEDS ORDERED: MAGNESIUM HYDROXIDE SUSP 30 ML UDC PO PRN (09:59)
--- NOTE | 2023-12-16 10:33 | Anesthesiology Progress Note ---
Date of Service December 16, 2023 Anesthesia Post Procedure Vital Signs Vital Signs: Temp Pulse Pulse Resp BP Pulse Ox O2 Del Method 12/16/23 10:32 36.5 C 65 16 118/77 97 Room Air 12/16/23 10:00 36.4 C L 59 L 16 118/75 99 Room Air 12/16/23 09:40 75 18 119/83 99 Room Air 12/16/23 09:30 36.4 C L 70 14 115/77 97 Room Air 12/16/23 09:20 55 L 12 106/86 99 Oxymask 12/16/23 09:10 70 16 128/70 98 Oxymask 12/16/23 09:00 36.2 C L 89 13 104/69 96 Oxymask 12/16/23 05:48 36.8 C 67 20 144/98 H 96 Room Air O2 Flow Rate 12/16/23 10:32 12/16/23 10:00 12/16/23 09:40 12/16/23 09:30 12/16/23 09:20 4 12/16/23 09:10 4 12/16/23 09:00 6 12/16/23 05:48 Pain Intensity Left Knee: Pain Intensity: 5 Transfer of Care Handoff Completed per policy Notes Mental Status: alert / awake / arousable Patient Amnestic to Procedure: Yes Nausea / Vomiting: adequately controlled Pain: adequately controlled Airway Patency, RR, SpO2: stable & adequate BP & HR: stable & adequate Hydration State: stable & adequate Neuraxial Anesthesia: was administered and sensory block is resolving Anesthetic Complications: no major complications apparent
[2023-12-16] MEDS: SODIUM CHLORIDE 0.9% 1,000 ML IV SCH (10:45)
--- NOTE | 2023-12-16 11:04 | Operative Report ---
Post Operative Report Pre & Post Diagnosis Operation Date: 12/16/23 07:00 Pre-Op Diagnosis: Left Knee Osteoarthritis Post-Op Diagnosis: Left Knee Osteoarthritis I identified the patient and participated in the time-out.: Yes Procedure Operation Date: 12/16/23 07:00 Actual Procedures p Left Total Knee Arthroplasty(Left) - Reggie Powell MD Surgeon Reggie Powell MD Carbon Capture Power Plant Operator POLI/Pastora RIVERA-Patric Estimated Blood Loss 25 Findings Consistent with Post-Op Diagnosis Same as postoperative diagnosis. Specimens The resected portions of the distal femur. proximal tibia and the patella. Description of Procedure Please see detailed operative note. I attest to the content of the Intraoperative Record and any orders documented therein. Any exceptions are noted below.
--- NOTE | 2023-12-16 11:20 | Orthopedic Progress Note ---
Date of Service December 16, 2023 Assessment & Plan Admission and Anticipated Discharge Date Admission Date: December 16, 2023 Orthopedic Progress Note Postop check on the floor. She is doing well denies chest pain shortness of breath fever chills nausea vomiting or headache. There is a drain. She denies any other problems. Neurovascular check femoral sciatic nerve is normal can do a straight leg raise can bend about 30 to 40 degrees wound dressing clean dry and intact. Advised concerning exercises he will roll straight leg raise and knee flexion. Nothing behind her knee. Use knee immobilizer for gait only. He does not need to be on and better when she is seated. Discontinue saline lock IV fluid. She is eating and drinking. Case management to finalize home plans discharge tomorrow. Dressing change prior to discharge. Start DVT PE prophylaxis tomorrow. Patient advised of all this.
[2023-12-16] MEDS: ACETAMINOPHEN 500 MG TAB PO SCH (14:51)
[2023-12-16] MEDS: KETOROLAC 30 MG/ML VIAL IV SCH (15:01)
[2023-12-16] MEDS: FERROUS GLUCONATE 324 MG TAB PO SCH (16:41)
[2023-12-16] MEDS: ASCORBIC ACID 500 MG TAB PO SCH (16:41)
[2023-12-16] MEDS: SENNA 8.6 MG TAB PO SCH (20:33)
[2023-12-16] MEDS: DOCUSATE SODIUM 100 MG CAP PO SCH (20:33)
[2023-12-17] MEDS: oxyCODONE HCL IR 5 MG TAB (IMMEDIATE RELEASE) PO PRN (01:29)
[2023-12-17 06:13] LABS: Hematocrit (blood only) 34.8 % (37.0-47.0); Hemoglobin 11.3 g/dl (12.0-16.0); Mean Corpuscular Hemoglobin 28.4 pg (25.0-34.0); Mean Corpuscular Hgb Conc 32.5 g/dL (32.0-36.0); Mean Corpuscular Volume 87.4 fL (80.0-100.0); Platelet Count 164 K/uL (130-400); RDW Coefficient of Variation 12.9 % (11.5-14.5); RDW Standard Deviation 41.1 fL (36.4-46.3); Red Blood Count 3.98 M/uL (4.20-5.40); White Blood Count 9.77 K/ul (4.8-10.8)
[2023-12-17 06:33] LABS: BUN Creatinine Ratio 17.4 (10-20); Calcium 8.9 mg/dl (8.6-10.3); Creatinine Clr Calc Pharmacy 85.9 ml/min; Est GFR (African American) 79.6 ml/min; Est GFR (Non-African American) 68.6 ml/min; Potassium 4.1 mmol/L (3.5-5.1)
--- NOTE | 2023-12-17 06:51 | Orthopedic Progress Note ---
Date of Service December 17, 2023 Assessment & Plan Admission and Anticipated Discharge Date Admission Date: December 16, 2023 Orthopedic Progress Note Postop day 1 status post left total knee replacement. Patient is identifying some soreness where the tourniquet is. She does she states she feels a little stiffer today. She denies any chest pain shortness of breath fever chills nausea vomiting or headache. Vital signs are stable but on the lower end. Will hold her eta rhonda this morning. She was advised of this. Neurovascular check from sciatic nerve is normal wound dressing clean dry and intact. A.m. labs pending. Assessment overall doing well continue with care pathway discharge to home after PT OT start anticoagulation today resume beta-rhonda when BP is above 100.
[2023-12-17] MEDS: dexAMETHasone 10 MG in SYRINGE 0 ML IV SCH (07:46)
[2023-12-17] MEDS: MULTIVITAMIN TAB PO SCH (07:47)
[2023-12-17] MEDS: MAGNESIUM OXIDE 400 MG TAB PO SCH (07:47)
[2023-12-17] MEDS: CALCIUM 600MG + VIT D 400 IU TAB PO SCH (07:47)
[2023-12-17] MEDS: APIXABAN 2.5 MG TAB PO SCH (07:48)
[2023-12-17] MEDS ORDERED: METOPROLOL SUCC 25MG EXT REL TAB PO SCH (09:00)
--- NOTE | 2023-12-17 09:36 | Orthopedic Progress Note ---
Date of Service December 17, 2023 Assessment & Plan (1) Status post left knee replacement: Plan: The patient was evaluated in her room. Her dressings were changed today by me. During the dressing change, the patient became diaphoretic and lightheaded. She stated she did not feel well. She was helped back into bed with the assistance of nursing. Kris stocking was applied. The patient felt better laying down. She remains hypotensive. Narcotic and antihypertensive medication have been held. Will see how she does during physical therapy. I anticipate she will still be discharged to home today. Continue wearing the knee immobilizer when out of bed today and tomorrow. It may be discontinued entirely on Thursday morning. Leave the postsurgical dressings in place over the weekend. They can be changed by home health on Thursday. Use the walker for ambulation. Ice and elevate the leg frequently to reduce pain and swelling. Written discharge instructions have been provided. Prescription for Eliquis and Percocet have been sent to her pharmacy. Follow-up in the office on December 30 as scheduled for staple removal. Call the office with any other concerns. Admission and Anticipated Discharge Date Admission Date: December 16, 2023 Subjective This 58-year-old female seen today in her room. She is 1 day status post left total knee arthroplasty. The patient states she is having some pain, but it is in the thigh and mostly in the area of her tourniquet placement. She does have knee pain. She has been out of bed. She is currently sitting in a bedside chair. She did eat breakfast without difficulty. She would like to go home today. It has been noted that she has been hypotensive during most of her hospital stay. She did not receive her metoprolol yesterday and it has been held today. She denies any chest pain, shortness of breath, vomiting, abdominal pain, or back pain. She has had some waves of mild nausea this morning. Review of Systems Review of Systems: Unchanged from yesterday. Physical Exam Physical Exam: General: Well-developed, well-nourished, middle-aged female, in no acute distress. Sitting in a bedside chair. Alert and oriented. Skin: Warm and dry with good turgor. Not diaphoretic at this time. She is somewhat pale. Musculoskeletal: The patient has intact motor function of her left hip, knee, ankle, and toes. She is able to perform a straight leg raise with some assistance. She does have full terminal extension. Flexion to around 45 degrees. Neurologic: Gross sensation is intact across all aspects of the left leg by soft touch. Peripheral pulses are 2+. Results & Data Vital Signs (Past 12 Hours) Vital Signs Temp Pulse Resp BP Pulse Ox O2 Del Method 12/17/23 08:26 37 C 53 L 16 85/41 L 94 Room Air 12/17/23 07:37 87/53 L 12/17/23 07:07 36.6 C 52 L 16 90/58 L 95 Room Air 12/17/23 04:21 36.8 C 55 L 16 98/60 L 97 Room Air 12/16/23 23:04 36.6 C 62 18 103/63 96 Room Air Laboratory Results CBC obtained this morning shows a white count of 9.77. H&H of 11.3 and 34.8. Platelets 164,000. Glucose this morning 103. Electrolytes are unremarkable.
== END 2023-12-17 11:50 | disposition home health service (06) ==
LOC: ASU 05:00 → 3E 05:00